=== PATIENT | male | born 1970 | race Caucasian/White ===

== ENCOUNTER → 2016-05-09 | Outpatient (CLI) | payer BC, OTHER ==
[~2016-05-09] MED LIST: DOCUSATE SODIU250 MG PO; NAPROSYN500 MG PO; NORCO 7.5-3251 EACH PO; PHENERGAN 12.12.5 M1 PO
== END ==
LOC: KOH-I 16:00
DX: M25.561 Pain in right knee (principal); M23.41 Loose body in knee, right knee; S83.241A Other tear of medial meniscus, current injury, right knee, initial encounter; R22.41 Localized swelling, mass and lump, right lower limb
CPT/HCPCS: 73721

== ENCOUNTER → 2016-05-22 | Day surgery (SDC) | payer BC, OTHER ==
[~2016-05-22] VITALS: Ht 182.9 cm; Wt 98.0 kg
[2016-05-22 08:16] LABS: BUN/CREATININE RATIO 17 (0-10)
== END | disposition home or self-care (01) ==
LOC: OR 07:22
PROVIDERS: Orthopaedic Surgery
PROC: 0SBC4ZZ Excision of Right Knee Joint, Percutaneous Endoscopic Approach (ICD-10-PCS; principal; 2016-05-22 09:15)
DX: S83.241A Other tear of medial meniscus, current injury, right knee, initial encounter (principal); D48.1 Neoplasm of uncertain behavior of connective and other soft tissue; Z82.49 Family history of ischemic heart disease and other diseases of the circulatory system; Z83.3 Family history of diabetes mellitus; Z90.49 Acquired absence of other specified parts of digestive tract; Z90.89 Acquired absence of other organs
CPT/HCPCS: 80048; 93005; C1713; J0171; J0690; J1100; J2250; J2405; J7120